=== PATIENT | female | born 1950 | race Caucasian/White ===

== ENCOUNTER 2016-08-09 05:12 | Day surgery (SDC) | payer MEDICARE, BC ==
[2016-08-07 14:20] LABS: HEMATOCRIT 41.9 % (36.0-48.0); HEMOGLOBIN 13.6 g/dL (12-16); MCH 30.6 pg (26.0-34.0); MCHC 32.5 g/dL (31.0-37.0); MCV 94.4 fL (80.0-100.0); MEAN PLATELET VOLUME 10.3 fL (7.4-10.4); RBC 4.44 10x6/uL (4.00-5.40); RDW 12.9 % (11.5-14.5)
[~2016-08-09] VITALS: Ht 154.9 cm; Wt 73.0 kg
[~2016-08-09 05:12] MED LIST: LOPRESSOR25 MG PO; LOVASTATIN40 MG PO; VITAMIN D31000 UNIT PO; ZOLOFT100 MG PO
[2016-08-09 06:26] VITALS: BP 122/65; Ht 154.9 cm; Wt 73.0 kg
--- NOTE | 2016-08-09 07:56 | NUR ---
NO PREP, NO COUNTS R/T COLONOSCOPY PROCEDURE. BOVIE PAD X2 RIGHT THIGH [id number]
--- NOTE | 2016-08-09 10:54 | NUR ---
1045--IV DC'D, PT UP TO DRESS. [place] PAGE [phone]--DISCHARGE INSTRUCTIONS GIVEN, PT VERBALIZES UNDERSTANDING. PT OFF UNIT VIA WC. JE[place]ERSON PAGE
--- NOTE | 2016-08-18 09:40 | HP ---
PATIENT: MARIA VICTORIA HALL MEDICAL RECORD: [id number] ACCOUNT: [id number] LOCATION:[facility]LIN[facility] : 46 ADMISSION DATE: 08/09/16 HISTORY AND PHYSICAL EXAMINATION Addendum HISTORY OF PRESENT ILLNESS: The patient underwent a colonoscopy with polypectomy and argon plasma coagulation therapy back in February of 2016. Early followup was necessary due to the size of the polyp as well as its gross and histologic features. The patient's primary care physician is Dr. Bob Harris. The patient's video conference specialist is Dr. Reeder. 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 The procedure was performed at 30 cm from the anus. It was a wide base polyp. The patient underwent injection at the base of the polyp for hemostasis as well as piecemeal snare polypectomy and argon plasma coagulation ablation of the polypoid base as well as reinforcement and closure of the polypoid base with endoscopically placed resolution clips times 4. The patient's history and physical examination is unchanged from her prior visit. For the typed portion of the history and physical, including the past medical and surgical history, home medications, allergies, social history, please see the chart. PHYSICAL EXAMINATION: GENERAL: The patient does not appear acutely ill. She does not appear chronically ill. The entire physical examination was performed in the presence of a female nurse. HEAD: External ears appear normal. EYES: Extraocular movements are intact. NECK: Trachea is midline. CHEST: No intercostal retractions. PULMONARY: Nonlabored, no stridor. ABDOMEN: Nontender. EXTREMITIES: No peripheral cyanosis. IMPRESSION: Complex polyp with atypia at 30 cm from the anus. PLAN: Will be colonoscopy with polypectomy utilizing the argon plasma signal helper. TRANSINT:[id number] Voice Confirmation ID: [id number] DOCUMENT ID: [id number] DIANNE MONROE MD at 0940 CC: [id number] DICTATION DATE: 08/09/16 0750 BUTTON BREAKER OPERATOR: 08/09/16 0838 [facility] 08/09/16 [id number] [place] [address]
--- NOTE | 2016-08-18 09:40 | OP ---
PATIENT NAME: MARIA VICTORIA HALL MEDICAL RECORD: [id number] :46 LOCATION:D.OPS ADMISSION DATE: SURGEON: DIANNE MONROE MD DATE OF OPERATION: 08/09/2016 PREOPERATIVE DIAGNOSIS: History of a complex polyp at 30 cm from the anus, which had low-grade atypia. Due to the complexity of the polyp, early surveillance is warranted. POSTOPERATIVE DIAGNOSES: History of a complex polyp at 30 cm from the anus, which had low-grade atypia. Due to the complexity of the polyp, early surveillance is warranted, with some regrowth of the polyp on a fold, in front of a fold and behind a fold. The polyp was most easily identifiable with narrow band imaging. Mild sigmoid diverticulosis. PROCEDURES: 1. Total colonoscopy to cecum. 2. Polypectomy utilizing the argon plasma funding specialist. 3. Endoscopic tattooing of the polypoid fold for easier identification in the future. SURGEON: Dianne Monroe MD OIL DELIVERER: None. BLOOD LOSS: Minimal. ANESTHESIA: General. COMPLICATIONS: None. The risks, possible complications and alternatives to procedure were explained to the patient. She elects to proceed. OPERATIVE COURSE: The patient was conveyed to the operating room electively on 08/09/2016. General anesthesia was induced by the anesthesia staff. The patient was placed in the Hernandez position. A digital rectal examination was performed. A colonoscope was inserted through the anus. It was easily advanced to the cecum. The prep was excellent. I slowly withdrew the endoscope. I irrigated and aspirated extensively. I dragged the folds. The pullback was greater than 15-minute pullback. The polyp was identified as well as eschar within the recurrent polyp. The polyp was thoroughly biopsied utilizing the cold endoscopic biopsy forceps. I then ablated any remaining polypoid tissue with the argon plasma funding specialist utilizing the right colon setting and the forced mode. I then advanced an endoscopic sclerotherapy needle. A submucosal injection of 3 cc of Olivia ink was performed as a tattooing process for easier identification in the future. The endoscope was withdrawn into the rectum. A retroflexed view was obtained in the rectum. I then unretroflexed the scope and removed it under direct vision. The patient was then extubated and conveyed to post-anesthesia care unit where she was in stable condition. I going to plan to see her in the office in 2-3 weeks. Due to the moderate amount of regrowth, I am going to plan for her next colonoscopy with argon plasma funding specialist to take place in the operating room in OPERATIVE REPORT [id number] MARIA VICTORIA HALL 1 years. TRANSINT:[id number] Voice Confirmation ID: [id number] DOCUMENT ID: [id number] DIANNE MONROE MD at 0940 CC: MARNI PACHECO MD and CHAI LANDRY MD [id number] DICTATION DATE: 08/09/16909 MOTOR VEHICLE OR CARAVAN SALESPERSON: 08/09/16 1013 [facility] 08/09/16 [facility] [address] [place] [address]
== END 2016-08-09 10:50 | disposition home or self-care (01) ==
LOC: D.OPS 05:12 → D.PAN 08:55 → D.OPS 09:00 → D.PAN 09:00 → D.OPS 10:50
PROVIDERS: Anesthesiology
DX: Z12.11 Encounter for screening for malignant neoplasm of colon (principal); D12.5 Benign neoplasm of sigmoid colon; K57.30 Diverticulosis of large intestine without perforation or abscess without bleeding; Z86.010 Personal history of colon polyps; Z91.013 Allergy to seafood

== ENCOUNTER 2018-10-08 07:35 | Day surgery (SDC) | payer MEDICARE, BC ==
[~2018-10-08] VITALS: Ht 154.9 cm; Wt 70.0 kg
[2018-10-08 08:01] LABS: HEMATOCRIT 39.7 % (36.0-48.0); HEMOGLOBIN 13.7 g/dL (12-16); MCH 31.4 pg (26.0-34.0); MCHC 34.5 g/dL (31.0-37.0); MCV 91.1 fL (80.0-100.0); MEAN PLATELET VOLUME 9.9 fL (7.4-10.4); RBC 4.36 10x6/uL (4.00-5.40); RDW 13.1 % (11.5-14.5); WBC 6.2 10x3/uL (4.8-10.8)
[2018-10-08] MEDS ORDERED: METFORMIN HCL500 M1 (09:15)
[2018-10-08 09:20] VITALS: BP 141/66; Ht 154.9 cm; Wt 70.0 kg
--- NOTE | 2018-10-08 12:30 | NUR ---
1230 FL DIET SERVED.
--- NOTE | 2018-10-08 12:57 | NUR ---
PT DC INSTRUCTIONS REVIEWED AT THIS TIME, PT VERBALIZES UNDERSTANDING AND AGREES. PT IV REMOVED AT THIS TIME, NO REDNESS OR SWELLING NOTED AT SITE.
--- NOTE | 2018-10-13 14:09 | HP ---
PATIENT: MARIA VICTORIA HALL MEDICAL RECORD: [id number] ACCOUNT: [id number] LOCATION:DNancyELIS : 46 ADMISSION DATE: 10/08/18 PCP: MARNI PACHECO MD HISTORY AND PHYSICAL EXAMINATION CHIEF COMPLAINT: History of colon polyps. HISTORY OF PRESENT ILLNESS: The patient underwent a colonoscopy with a polypectomy back in July of 2016. This revealed a mixed hyperplastic and adenomatous polyp with focal low-grade atypia dysplasia. This was present at 30 cm. My plan today is to perform colonoscopy and possible polypectomy of any tissue that may have occurred. ALLERGIES: IODINE AND SHRIMP. HOME MEDICATIONS: Please see the nursing list. SOCIAL HISTORY: Nonsmoker. PAST MEDICAL AND SURGICAL HISTORY: Noninsulin dependent diabetes mellitus, also hypertension, also history of colon polyps. PHYSICAL EXAMINATION: GENERAL: The patient does not appear acutely ill. She does not appear chronically ill. VITAL SIGNS: Reviewed. EARS: External ears appear normal. EYES: Extraocular movements are intact. NECK: Trachea midline. CHEST: No intercostal retractions. IMPRESSION: History of colon polyps including one complex polyp, this is a recurrent polyp at 30 cm. PLAN: Colonoscopy and polypectomy, perhaps utilizing the argon plasma dumpling machine operator or endoscopic mucosal resection. TRANSINT:[id number] Voice Confirmation ID: [id number] DOCUMENT ID: [id number] DIANNE MONROE MD at 1409 CC: MARNI PACHECO MD and CHAI LANDRY [id number] DICTATION DATE: 10/08/18 1113 TECHNICAL OPERATIONS SPECIALIST: 10/08/18 1145 [facility] 10/08/18 [id number] [place] [address]
--- NOTE | 2018-10-13 14:09 | OP ---
PATIENT NAME: MARIA VICTORIA HALL MEDICAL RECORD: [id number] :46 LOCATION:D.OPS ADMISSION DATE: SURGEON: DIANNE MONROE MD DATE OF OPERATION: 10/08/2018 PREOPERATIVE DIAGNOSES: History of polyp at 30 cm and was a mixed hyperplastic/adenomatous polyp with focal low-grade atypia dysplasia, necessitating more frequent follow up than a standard adenomatous polyp. POSTOPERATIVE DIAGNOSES: History of polyp at 30 cm and was a mixed hyperplastic/adenomatous polyp with focal low-grade atypia dysplasia, necessitating more frequent follow up than a standard adenomatous polyp, with regrowth of the polyp. Additionally, there was a secondary sessile polyp, which was an 8-mm polyp. PROCEDURES: 1. Total colonoscopy to cecum. 2. Cold endoscopic biopsies and then treatment of the polypoid base at 30 cm with the argon plasma emergency planning and response manager with the right colon setting in the forced mode. 3. Hot biopsy forceps polypectomy times 1. SURGEON: Dianne Monroe MD RELOCATION COUNSELOR: None. BLOOD LOSS: Minimal. ANESTHESIA: IV sedation. COMPLICATIONS: None. The risks, possible complications, and alternatives to procedure were explained to the patient. She elects to proceed. ENDOSCOPIC COURSE: The patient was conveyed to the endoscopy suite electively on 10/08/2018. IV sedation was induced by the anesthesia staff. The patient was placed in the Hernandez position. A digital rectal examination was performed. A colonoscope was inserted through the anus. It was easily advanced to the cecum. The prep was adequate. I slowly withdrew the endoscope. I irrigated and aspirated extensively. I dragged the folds. The pullback was greater than 19-minute pullback. A single hot biopsy forceps polypectomy was performed. Additionally, at the tattooed site there was regrowth of polyp to 2.3 cm and this polyp was biopsied multiply utilizing a cold endoscopic biopsy forceps and then I ablated the polypoid base utilizing the argon plasma emergency planning and response manager with the right colon setting in the forced mode. I then withdrew into the rectum. A retroflexed view was obtained in the rectum. I then unretroflexed the scope and removed it under direct vision. I plan to see the patient in my office in 2-3 weeks. Unless there is an invasive malignancy present, I am going to recommend that her next colonoscopy to take place in 2 years. TRANSINT:[id number] Voice Confirmation ID: [id number] DOCUMENT ID: [id number] OPERATIVE REPORT [id number] MARIA VICTORIA HALL ROBERT MD at 1409 CC: MARNI PACHECO MD and CHAI LANDRY [id number] DICTATION DATE: 10/08/18 1206 FINGER BUFF SEWER: 10/08/18 1227 [facility] 10/08/18 [address] [id number]
== END 2018-10-08 13:10 | disposition home or self-care (01) ==
LOC: D.OPS 07:35
PROVIDERS: Anesthesiology; ATTEND Surgery
DX: D12.5 Benign neoplasm of sigmoid colon (principal); K63.5 Polyp of colon; Z86.010 Personal history of colon polyps; Z01.812 Encounter for preprocedural laboratory examination

== ENCOUNTER 2019-10-28 08:35 | Day surgery (SDC) | payer MEDICARE, BC ==
[~2019-10-28] VITALS: Ht 154.9 cm; Wt 71.4 kg
--- NOTE | ~2019-10-28 | OP ---
PATIENT NAME: MARIA VICTORIA HALL MEDICAL RECORD: [id number] :46 LOCATION:D.OPS ADMISSION DATE: SURGEON: AGUSTO MONROE MD DATE OF OPERATION: 10/28/2019 PRINCIPAL DIAGNOSIS: History of complex colon polyp at 30 cm. POSTOPERATIVE DIAGNOSES: History of complex colon polyp at 30 cm with no evidence of recurrence or persistence of the polyp. PROCEDURE: Total colonoscopy to cecum. SURGEON: Agusto Monroe MD LOGGING RAFTER LABORER: None. BLOOD LOSS: Minimal. ANESTHESIA: IV sedation. COMPLICATIONS: None. The risks, possible complications, and alternatives to the procedure were explained to the patient. She elects to proceed. ENDOSCOPIC COURSE: The patient was conveyed to endoscopy suite electively on 10/28/2019. IV sedation was induced by the anesthesia staff. The patient was placed in the Hernandez position. A digital rectal examination was performed. A colonoscope was inserted through the anus. It was easily advanced to the cecum. The prep was inadequate. I slowly withdrew the endoscope. I irrigated and aspirated extensively. I dragged the folds. I utilized normal imaging as well as narrow band imaging. We identified the tattoo at 30 cm. I carefully scrutinized the entire area for a while and identified no persistence or recurrence of polyp. A retroflexed view was obtained in the rectum. I then unretroflexed the scope and removed it under direct vision. There is no need for the patient to follow up with me in the office. We will plan for her next colonoscopy to take place in 3 years. TRANSINT:[id number] Voice Confirmation ID: [id number] DOCUMENT ID: [id number] AGUSTO MONROE MD CC: MARNI PACHECO MD [phone] DICTATION DATE: 10/28/19 1217 DOWEL SETTING MACHINE OPERATOR: 10/28/19 2232 [facility] 10/28/19 [place] [address]
--- NOTE | ~2019-10-28 | HP ---
PATIENT: MARIA VICTORIA HALL MEDICAL RECORD: [id number] ACCOUNT: [id number] LOCATION:[facility]aya[facility]ancyELIS : 46 ADMISSION DATE: 10/28/19 PCP: MARNI PACHECO MD HISTORY AND PHYSICAL EXAMINATION PRINCIPAL DIAGNOSES: Complex colon polyps including an adenomatous polyp with focal low-grade atypia at 30 cm. HISTORY: The patient underwent cold endoscopic biopsies and treatment of the polypoid base at 30 cm with the argon plasma el teacher in the right colon setting in the forced mode. Pathology on the specimen revealed a tubulovillous adenoma with focal low-grade atypia. The patient is here for colonoscopy today. HOME MEDICINES: Reviewed. ALLERGIES: IODINE. SOCIAL HISTORY: Nonsmoker. PAST MEDICAL AND SURGICAL HISTORY: Prediabetes, hypertension as well as arthritis. REVIEW OF SYSTEMS: No angina. She has noted no blood in her stool and she has had no abdominal pain. PHYSICAL EXAMINATION: GENERAL: The patient does not appear acutely ill. She does not appear chronically ill. VITAL SIGNS: Reviewed. EARS: External ears appear normal. EYES: Extraocular movements are intact. NECK: Trachea is midline. CHEST: No intercostal retractions. PULMONARY: Nonlabored and no stridor. IMPRESSION: History of a complex polyp at 30 cm. PLAN: Colonoscopy. TRANSINT:[id number] Voice Confirmation ID: [id number] DOCUMENT ID: [id number] DIANNE MONROE MD CC: MARNI PACHECO MD and CHAI LANDRY [id number] DICTATION DATE: 10/28/19 1134 PARK AIDE: 10/28/19 1248 [facility] [address] [place] [address]
[~2019-10-28 08:35] MED LIST changes: +METFORMIN HCL500 M1
[2019-10-28 09:14] LABS: HEMATOCRIT 40.7 % (36.0-48.0); HEMOGLOBIN 13.3 g/dL (12-16); MCH 29.4 pg (26.0-34.0); MCHC 32.7 g/dL (31.0-37.0); MEAN PLATELET VOLUME 9.9 fL (7.4-10.4); RBC 4.52 10x6/uL (4.00-5.40); RDW 13.7 % (11.5-14.5); WBC 4.1 10x3/uL (4.8-10.8)
[2019-10-28 09:20] LABS: ANION GAP 9.9 mmol/L (8-16); CALCIUM 9.3 mg/dL (8.5-10.1); CARBON DIOXIDE 31.5 mmol/L (21.0-32.0); POTASSIUM - SERUM 4.4 mmol/L (3.5-5.1)
[2019-10-28 09:45] VITALS: Ht 154.9 cm; Wt 71.4 kg
--- NOTE | 2019-10-28 13:15 | NUR ---
DISCHARGE INSTRUCTIONS PROVIDED, VANCOMYCIN COMPLETED. IV REMOVED WITH TIP INTACT. WHEELED OUT TO PT FAMILY
--- NOTE | 2019-10-28 14:06 | NUR ---
1235 ASSISTED UP TO BATHROOM. AMBULATORY WITHOUT DIFFICULTY. Madan GARCIA R.N.
== END 2019-10-28 13:15 | disposition home or self-care (01) ==
LOC: D.OPS 08:35
PROVIDERS: Anesthesiology; ATTEND Surgery
DX: Z86.010 Personal history of colon polyps (principal); R73.03 Prediabetes; I10 Essential (primary) hypertension